=== PATIENT | male | born 2000 | race Caucasian/White ===

== ENCOUNTER 2024-11-07 11:27 | Emergency (ER) | payer OTHER, SELFPAY ==
[2024-11-07 11:45] VITALS: BP 115/82
[2024-11-07 12:03] LABS: % Basophils 0.6 % (0-2); % Eosinophils 5.9 % (0-6); % Immature Granulocytes 0.5 % (0-0.5); % Lymphocytes 19.2 % (20.5-51.1); % Monocytes 12.7 % (1.7-9.3); % Neutrophils 61.1 % (42.2-75.2); Absolute Basophils 0.1 10^3/uL (0-0.2); Absolute Eosinophils 0.9 10^3/uL (0-0.7); Absolute Immature Granulocytes 0.1 10^3/uL (0-0.05); Absolute Neutrophils 9.7 10^3/uL (1.4-6.5); Hematocrit 46.7 % (39.0-52.0); Hemoglobin 16.7 g/dL (13.0-18.0); Mean Corp Hgb Conc. 35.8 g/dL (33.0-37.0); Mean Corpuscular Hgb 30.7 pg (27.0-31.0); Mean Corpuscular Volume 85.8 fL (80.0-94.0); Mean Platelet Volume 9.4 fL (7.4-10.4); Nucleated Red Blood Cells % 0 % (-); Platelet Count 290 10^3/uL (130-400); Red Blood Cell Count 5.44 10^6/uL (4.70-6.10); Red Cell Dist. Width 12.6 % (11.5-14.5); White Blood Cell Count 15.9 10^3/uL (4.8-10.8)
[2024-11-07 12:33] LABS: Blood Urea Nitrogen 11 mg/dl (9-20); Calcium 9.9 mg/dl (8.4-10.2); Carbon Dioxide 25 mmol/L (22-30); Chloride 104 mmol/L (98-107); Glucose 97 mg/dl (70-99); Sodium 141 mmol/L (135-145); eGFR > 60.00
--- NOTE | 2024-11-07 13:28 | ED.GENMED ---
History of Present Illness
General
Chief Complaint: Dental Problem
Source: patient
Exam Limitations: none
Time Seen by Provider: 11/07/24 12:52
Nursing documentation reviewed up to this point in time: agreed with
History of Present Illness
History of Present Illness:
24 yr old male presents to the ER for evaluation. Patient reports he started with right upper tooth pain 3 days ago. He was told in his past that he needs this tooth extracted he is working on finding a dentist. He did go to urgent care yesterday
and was given Augmentin. He has been taking ibuprofen but complains of worsening pain and this morning noticed a mild swelling in his right upper lip. He denies any actual facial pain. He denies any fevers.
Past History
Past History
ED Past Medical History: Asthma
Social History
Drug: Former user
Review of Systems
Review of Systems
Allergies reviewed?: Yes
All Other Systems: ROS reviewed and negative except as documented in HPI and ROS
Constitutional: Reports no symptoms; Denies fever, fatigue or chills
EENT: Reports other (right sided tooth pain)
Respiratory: Reports no symptoms
Cardiac: Reports no symptoms
ABD/GI: Reports no symptoms
: Reports no symptoms
Musculoskeletal: Reports no symptoms
Skin: Reports no symptoms
Neurological: Reports no symptoms
Psychiatric: Reports no symptoms
Phy Exam
General Physical Exam
General Presentation: no apparent distress
General age: appears stated age
General Skin: warm and dry
General Habitus: normal
General Mental: alert
General Hydration: appears well hydrated
ENT Exam
ENT Exam: other (no obvious gum swelling /abscess or flucutance, no obvious swelling to lip. no swelling to face, no trismus no, mildly tender to tooth Number 6 (silver cap in place) )
Neurological Exam
Neurological Exam: alert and oriented x3
Musculoskeletal Exam
Musculoskeletal Exam: full ROM
Skin Exam
Skin Exam: normal color and warm/dry
Psychiatric Exam
Psychiatric Exam: normal mood/affect
Course
Orders/Labs/Results
Orders:
Orders
11/07/24 11:51
Basic Metabolic Panel Urgent
Complete Blood Count/With Diff Urgent
11/07/24 13:40
Acetaminophen [Tylenol] 1,000 mg PO NOW STA
Clindamycin HCl [Cleocin] 300 mg PO NOW STA
Abnormal Lab Results
11/07/24
11:51
WBC 15.9 H 10^3/uL
(4.8-10.8)
Abs Immat Gran (auto) 0.1 H 10^3/uL
(0-0.05)
Absolute Neuts (auto) 9.7 H 10^3/uL
(1.4-6.5)
Absolute Monos (auto) 2.0 H 10^3/uL
(0.1-0.6)
Absolute Eos (auto) 0.9 H 10^3/uL
(0-0.7)
Lymphocytes % 19.2 L %
(20.5-51.1)
Monocytes % 12.7 H %
(1.7-9.3)
11/07/24 11:51
11/07/24 11:51
Vital Signs
Initial and Last Documented VS:
Initial Vital Signs
Temp Pulse Resp BP Pulse Ox
98.1 F 88 16 115/82 98
11/07/24 11:45 11/07/24 11:45 11/07/24 11:45 11/07/24 11:45 11/07/24 11:45
Last Documented Vital Signs
Temp Pulse Resp BP Pulse Ox
98.1 F 88 16 115/82 98
11/07/24 11:45 11/07/24 11:45 11/07/24 11:45 11/07/24 11:45 11/07/24 11:45
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
Name of Physician Consulted: [place]
MDM/Problems Addressed
Differential Diagnosis Includes:
not limited to: dental caries, abscess
MDM/Problems Addressed:
Patient is a 24-year-old male that complains of pain to his right upper tooth(tooth #6) he was prescribed Augmentin by urgent care yesterday but complains of mild swelling to his right upper lip. On exam I do not see any obvious swelling there is
no trismus there is no facial swelling. Denies any fever or chills. He is afebrile nontoxic-appearing white count is elevated. Case reviewed with ED physician. IT is possible there is very small abscess however with no obvious facial swelling
or trismus and patient is well-appearing we will hold off on imaging will switch antibiotics to clindamycin.
*Critical Care Note
Total Time (30-74mins, 75-104mins- exclusive of procedures): Not Applicable
ED Attending Note
-
Portions of this chart may have been created with voice recognition software.� Occasional wrong word or��sound alike� substitutions may have occurred due to the inherent limitations of voice recognition software.
Discharge Plan
Departure
Patient Disposition: Home (Routine Discharge)
Date of Disposition: 11/07/24
Time of Disposition: 13:41
Patient with high blood pressure during this ER visit?: No
Condition: Fair
Covid-19: Not Applicable
Discharge Problem:
Pain, dental
Instructions: Dental Pain (DC)
Prescriptions:
New
clindamycin HCl [Cleocin HCl] 300 mg capsule
300 mg PO Q6H Qty: 40 0RF
Referrals:
Norman Mcghee, MD [facility] [Active] -
UNKNOWN - PT DOES,NOT KNOW [Family Provider] -
Activity Restrictions/Additional Instructions:
As discussed stop Augmentin and start clindamycin.
This medication was sent to the pharmacy. Take every 6 hours. You may alternate between ibuprofen and Tylenol. Please follow-up with oral maxillofacial surgery(see number listed) call today to make an appointment next several days return if any
worsening of symptoms.
Interventions
Interventions:
*Risk Screen - Suicide Last Done: 11/07/24 11:45
*Neglect/Abuse Screening Last Done: 11/07/24 11:45
Discharge Date and Time
Print Language: NEPALI
[2024-11-07] MEDS: CLEOCIN 300 MG PO (13:55)
[2024-11-07] MEDS: TYLENOL 1000 MG PO (13:55)
[2024-11-07 14:00] VITALS: BP 119/65
== END 2024-11-07 14:23 | disposition home or self-care (01) ==
LOC: EMR 11:27
PROVIDERS: EMERGENCY PHYSICIAN Student in an Organized Health Care Education/Training Program
DX: K08.89 Other specified disorders of teeth and supporting structures (principal); J45.909 Unspecified asthma, uncomplicated
CPT/HCPCS: 99283; 80048; 85025

== ENCOUNTER 2024-11-10 14:21 | Emergency (ER) | payer OTHER, SELFPAY ==
[2024-11-10 14:42] VITALS: BP 117/85
[2024-11-10 16:01] LABS: % Basophils 0.7 % (0-2); % Immature Granulocytes 0.4 % (0-0.5); % Lymphocytes 17.9 % (20.5-51.1); % Monocytes 8.4 % (1.7-9.3); % Neutrophils 70.6 % (42.2-75.2); Absolute Basophils 0.1 10^3/uL (0-0.2); Absolute Eosinophils 0.2 10^3/uL (0-0.7); Absolute Lymphocytes 1.9 10^3/uL (1.2-3.4); Absolute Monocytes 0.9 10^3/uL (0.1-0.6); Absolute Neutrophils 7.6 10^3/uL (1.4-6.5); Hematocrit 46.2 % (39.0-52.0); Hemoglobin 16.6 g/dL (13.0-18.0); Mean Corp Hgb Conc. 35.9 g/dL (33.0-37.0); Mean Corpuscular Hgb 30.8 pg (27.0-31.0); Mean Corpuscular Volume 85.7 fL (80.0-94.0); Mean Platelet Volume 8.8 fL (7.4-10.4); Nucleated Red Blood Cells % 0 % (-); Platelet Count 272 10^3/uL (130-400); Red Blood Cell Count 5.39 10^6/uL (4.70-6.10); Red Cell Dist. Width 12.7 % (11.5-14.5); White Blood Cell Count 10.8 10^3/uL (4.8-10.8)
[2024-11-10 16:12] LABS: ALT (SGPT) 24 U/L (0-50); AST (SGOT) 28 U/L (17-59); Albumin 5.3 g/dl (3.5-5.0); Alkaline Phosphatase 71 U/L (38-126); Blood Urea Nitrogen 13 mg/dl (9-20); Calcium 10.3 mg/dl (8.4-10.2); Carbon Dioxide 23 mmol/L (22-30); Chloride 105 mmol/L (98-107); Glucose 95 mg/dl (70-99); Potassium 4.6 mmol/L (3.5-5.1); Sodium 143 mmol/L (135-145); Total Bilirubin 0.7 mg/dl (0.2-1.3); Total Protein 7.8 g/dl (6.3-8.2); eGFR > 60.00
[2024-11-10 16:14] LABS: Lipase 43 U/L (23-300)
[2024-11-10 18:36] VITALS: BMI 18.1
[2024-11-10 18:40] VITALS: BP 143/77
[2024-11-10] MEDS: NSS 1000 IV (19:10)
[2024-11-10] MEDS: ZOFRAN 4 MG IV (19:12)
[2024-11-10] MEDS: PROTONIX IV 40 MG IV (19:14)
[2024-11-10 19:25] VITALS: BP 95/75
[2024-11-10 20:00] VITALS: BP 110/66
--- NOTE | 2024-11-10 20:08 | ED.GENMED ---
History of Present Illness
General
Chief Complaint: Abdominal Symptoms
Time Seen by Provider: 11/10/24 17:49
History of Present Illness
History of Present Illness:
24-year-old male without significant past medical history presenting to the emergency department for nausea and vomiting. Patient reports symptoms started this morning with difficulty tolerating p.o. Notes that he has been having ongoing dental
abscess to his upper gums. Was initially on Augmentin, however was switched to clindamycin 3 days ago. He has been tolerating the clindamycin without difficulty, and the dental abscess is improving, draining spontaneously. Denies any associate
abdominal pain. Denies any diarrhea. Denies any known sick contacts. Denies any history of indigestion. Denies eating any abnormal foods. Denies fever. Denies additional acute medical complaints
Past History
Past History
ED Past Medical History: Asthma
Social History
Drug: Former user
Phy Exam
Physical Exam
Physical Exam:
General: Well-appearing, no clinical signs of dehydration, nontoxic and in no acute distress
HEENT: protecting airway. Small area of fluctuance at the upper gumline, spontaneously draining on palpation
Neck: appears supple
CV: Normal heart rate, regular rhythm
Resp: No accessory muscle use, no increased work of breathing, lungs clear to auscultation bilaterally
Abd: Soft and non-distended, no tenderness to palpation, normal bowel sounds
Extremities: No deformities, no swelling
Neuro: alert, no focal neurologic deficit
: deferred
Rectal: deferred
Psych: Normal affect
Skin: Intact
Course
Orders/Labs/Results
Orders:
Orders
11/10/24 15:49
Complete Blood Count/With Diff Urgent
Comprehensive Metabolic Panel Urgent
Lipase Urgent
11/10/24 18:38
0.9% Sodium Chloride 1000 ml [Nss] 1,000 ml IV BOLUS
Ondansetron Injectable [Zofran] 4 mg IV NOW STA
11/10/24 18:56
Pantoprazole [Protonix IV] 40 mg IV NOW STA
Abnormal Lab Results
11/10/24
15:49
Absolute Neuts (auto) 7.6 H 10^3/uL
(1.4-6.5)
Absolute Monos (auto) 0.9 H 10^3/uL
(0.1-0.6)
Lymphocytes % 17.9 L %
(20.5-51.1)
Calcium 10.3 H mg/dl
(8.4-10.2)
Albumin 5.3 H g/dl
(3.5-5.0)
11/10/24 15:49
11/10/24 15:49
Vital Signs
Initial and Last Documented VS:
Initial Vital Signs
Temp Pulse Resp BP Pulse Ox
97.2 F 105 18 117/85 99
11/10/24 14:42 11/10/24 14:42 11/10/24 14:42 11/10/24 14:42 11/10/24 14:42
Last Documented Vital Signs
Temp Pulse Resp BP Pulse Ox
99.0 F 88 15 111/72 99
11/10/24 20:40 11/10/24 20:41 11/10/24 20:41 11/10/24 20:41 11/10/24 20:41
MDM/Problems Addressed
MDM/Problems Addressed:
24-year-old male presenting for nausea and vomiting. Vital signs on arrival significant for mild tachycardia.
On exam, patient is resting comfortably, no acute distress or discomfort. Patient is afebrile, nontoxic. No tenderness to the abdomen, soft and nondistended. Ultimately suspect nausea and vomiting is from a viral enteritis, acute onset this
morning. No associated diarrhea. Lower suspicion for any serious intra-abdominal process or infection given the absence of any tenderness on exam, or report of any pain. Patient does note infection in his gumline, does have a palpable small
abscess that is drainable upon palpation. Without present concern for systemic infection, reassuring vital signs. Patient had screening laboratory analysis prior to my assessment, no leukocytosis. Suspect tachycardia from mild dehydration. Plan
for IV fluids and Zofran as well as pantoprazole. Medication reaction is also consideration, given clindamycin and side effects of GI distress. No concern for allergic reaction.
20:25 - On reassessment after given therapeutics, patient is reporting symptom improvement. Vital signs remained stable with normalization of heart rate. Feel stable for discharge. Patient has dental follow-up scheduled next week. Advised bland
diet. No further episodes of vomiting in the ER. Discussed and patient and family verbalized understanding
*Critical Care Note
Total Time (30-74mins, 75-104mins- exclusive of procedures): Not Applicable
ED Attending Note
-
Portions of this chart may have been created with voice recognition software.� Occasional wrong word or��sound alike� substitutions may have occurred due to the inherent limitations of voice recognition software.
Discharge Plan
Departure
Patient Disposition: Home (Routine Discharge)
Date of Disposition: 11/10/24
Time of Disposition: 20:25
Patient with high blood pressure during this ER visit?: No
Condition: Good
Discharge Problem:
Viral enteritis
Instructions: Nausea and Vomiting, Adult (DC), Gastritis - ED discharge instructions
Prescriptions:
New
ondansetron 4 mg Tablet,Disintegrating
4 mg PO TIDPRN PRN (Reason: nausea/vomiting) Qty: 6 0RF
No Action
clindamycin HCl [Cleocin HCl] 300 mg capsule
300 mg PO Q6H Qty: 40 0RF
Referrals:
NONE,* [Family Provider] -
Activity Restrictions/Additional Instructions:
You were seen in the emergency department for nausea and vomiting
You were found to have normal laboratory analysis. We suspect you have a virus that should hopefully resolve in the next 1 to 3 days. Your symptoms also could be secondary to your antibiotic. If you are not tolerating the antibiotic, you can
switch back to the Augmentin, which you note you were tolerating.
Please follow-up closely with your primary care physician.
Return to the emergency department for any worsening of your symptoms, or any development of chest pain, difficulty breathing, abdominal pain with persistent vomiting and inability to tolerate food or liquid by mouth (concern for dehydration),
weakness, headache or confusion, fever greater than 100.4, or any additional symptoms that are concerning to you.
Thank you for choosing [facility].
Interventions
Interventions:
*Risk Screen - Suicide Last Done: 11/10/24 14:42
*General Assessment Last Done: 11/10/24 14:42
*Neglect/Abuse Screening Last Done: 11/10/24 14:42
*ED- Fall Risk Assessment Last Done: 11/10/24 19:02
*ED COVID-19 Vaccine History Last Done: 11/10/24 19:02
*Nursing Disposition Last Done: 11/10/24 20:50
LF-Ycvlso-Lmfnixhbjo Assessment Last Done: 11/10/24 18:36
Discharge Date and Time
Discharge Date/Time: 11/10/24 20:50
Print Language: TRISTANIAN
[2024-11-10 20:41] VITALS: BP 111/72
== END 2024-11-10 20:50 | disposition home or self-care (01) ==
LOC: EMR 14:21
PROVIDERS: EMERGENCY PHYSICIAN Student in an Organized Health Care Education/Training Program
DX: R11.2 Nausea with vomiting, unspecified (principal); K04.7 Periapical abscess without sinus; R00.0 Tachycardia, unspecified; J45.909 Unspecified asthma, uncomplicated
CPT/HCPCS: 99284; 96374; 96375; 96361; 80053; 83690; 85025